=== PATIENT | female | born 1980 | race Caucasian/White ===

== ENCOUNTER 2020-02-02 10:50 | Emergency (ER) | payer OTHER, SELFPAY ==
[2020-02-02 11:20] VITALS: BP 118/74; PULSE 78; RESP 20; TEMP 36.5; O2SAT 97
--- NOTE | 2020-02-02 12:11 | ED.URI ---
HPI - URI/Sore Throat General Chief Complaint: Upper Respiratory Infection Stated Complaint: Cold/Flu Time Seen by Provider: 02/02/20 12:11 Source: patient, family and RN notes reviewed Mode of arrival: ambulatory Limitations: no limitations History of Present Illness HPI Narrative: 39-year-old female who presents to express care with complaints of bilateral earaches, nasal drainage, sinus congestion, and pressure and sore throat since Thursday. Patient states that she has felt feverish with some chills and sweats, reports that her nasal drainage is yellow tinged and she has sinus pressure to her face, reports that her cough is dry and denies any shortness of breath or any wheezing. Patient is former smoker for 25 years and vaped for 3 years with cessation April of 2019 prior to having cervical neck surgery. MD elicited complaint: fever (reports has felt feverish), cough, sore throat, rhinorrhea, nasal congestion and sinus pain Pertinent past history: other (history of past tobacco abuse and vaping) Onset (ago): day(s) (5 days) Consistency: constant Severity: moderate Pain scale (0-10): 7 Description of mucous: yellow Able to tolerate fluids by mouth: Yes Exacerbating factors: swallowing and exertion Relieving factors: nothing Context: sick contacts Associated symptoms: fever, chills, myalgias, rhinorrhea, nasal congestion, sore throat, cough and other (ear pain) Treatments prior to arrival: other (Benadryl) Related Data Home Medications Medication Instructions Recorded Confirmed cyclobenzaprine 10 mg PO HS 02/02/20 02/02/20 famotidine 20 mg PO BID 02/02/20 02/02/20 levothyroxine 25 mcg PO DAILY 02/02/20 02/02/20 metformin 850 mg PO BID 02/02/20 02/02/20 mirtazapine [Remeron] 45 mg PO HS 02/02/20 02/02/20 potassium chloride 20 meq PO DAILY 02/02/20 02/02/20 pravastatin 20 mg PO HS 02/02/20 02/02/20 pregabalin [Lyrica] 150 mg PO TID 02/02/20 02/02/20 propranolol 20 mg PO Q12H 02/02/20 02/02/20 topiramate 50 mg PO BID 02/02/20 02/02/20 trazodone 100 mg PO HS 02/02/20 02/02/20 venlafaxine 75 mg PO DAILY 02/02/20 02/02/20 venlafaxine 150 mg PO QAM 02/02/20 02/02/20 Allergies Allergy/AdvReac Type Severity Reaction Status Date / Time buspirone Allergy Unknown SWELLS Verified 03/06/18 11:24 hydroxyzine Allergy Unknown SWELLS Verified 03/06/18 11:24 Review of Systems Review of Systems: Narrative: CONSTITUTIONAL:reports has felt feverish, chills, or sweats. EYES: Denies visual changes, redness, or discharge. ENT Positive rhinorrhea, congestion,no sore throat, bilateral otalgia. CARDIOVASCULAR: Denies chest pain, palpitations, or edema. RESPIRATORY:Positive cough denies dyspnea. GASTROINTESTINAL: Denies abdominal pain, nausea, vomiting, or diarrhea. GENITOURINARY: Denies dysuria or hematuria. SKIN: Denies rash or itching. MUSCULOSKELETAL: Denies back pain, joint pain, or myalgia. NEUROLOGIC: Denies headache, numbness, or weakness. PSYCHIATRIC: Positive anxiety or depression. All systems reviewed & are unremarkable except as noted in HPI and below PMFSH Past Medical History Medical History (Updated 02/03/20 @ 17:32 by Angy Holley NP) Anxiety and depression Diabetes Fibromyalgia Migraines Surgical History Surgical History (Updated 02/02/20 @ 12:26 by Angy Holley NP) H/O cervical spine surgery Social History Social History (Updated 02/02/20 @ 12:26 by Angy Holley NP) Smoking status: Former smoker Living arrangements: with family Gender identity (if verbalized by the patient): Female Comments At time of signature, agree with nursing past medical, social history. There is no relevant family history pertinent to the presenting complaint Exam Narrative: Exam Narrative: GENERAL: Well-appearing, well-nourished, and in no acute distress. HEAD: Normocephalic, atraumatic. EYES: PERRLA and EOMI. ENT: Nares red yellow tinged rhinorrhea no epistaxis. Mucous membranes moist.TM's normal with good lig
== END 2020-02-02 13:15 | disposition home or self-care (01) ==
PROVIDERS: Emergency Provider Registered Nurse; PCP Internal Medicine
DX: J06.9 Acute upper respiratory infection, unspecified (principal); H60.501 Unspecified acute noninfective otitis externa, right ear; Z87.891 Personal history of nicotine dependence; F41.9 Anxiety disorder, unspecified; F32.9 Major depressive disorder, single episode, unspecified; E11.9 Type 2 diabetes mellitus without complications; M79.7 Fibromyalgia
CPT/HCPCS: 87081; 87880; 99213; G0463

== ENCOUNTER 2020-07-18 13:03 | Emergency (ER) | payer OTHER, SELFPAY ==
[2020-07-18 13:11] VITALS: BP 125/80; PULSE 98; RESP 18; TEMP 36.9; O2SAT 98
--- NOTE | 2020-07-18 13:22 | ED.URI ---
HPI - URI/Sore Throat General Chief Complaint: Upper Respiratory Infection Stated Complaint: sore throat/nose congestion/left ear pain Source: patient and RN notes reviewed Mode of arrival: ambulatory Limitations: no limitations History of Present Illness HPI Narrative: This is a 40 years old female presents to the office for an evaluation of left ear pain for one week. Associated with decrease hearing. Other symptoms include sore throat and sinus congestion. Denies fever and cough. She calls off work today and will need a note to return. Denies smoking. Denies sick contact. Related Data Home Medications Medication Instructions Recorded Confirmed pregabalin [Lyrica] 150 mg PO TID 02/02/20 07/18/20 aspirin 325 mg PO DAILY 07/18/20 07/18/20 atorvastatin 80 mg PO DAILY 07/18/20 07/18/20 empagliflozin [Jardiance] 10 mg PO DAILY 07/18/20 07/18/20 levothyroxine 125 mcg PO BID 07/18/20 07/18/20 metformin 500 mg PO BID 07/18/20 07/18/20 topiramate 50 mg PO BID 07/18/20 07/18/20 trazodone 100 mg PO HS 07/18/20 07/18/20 venlafaxine 75 mg TID 07/18/20 07/18/20 Allergies Allergy/AdvReac Type Severity Reaction Status Date / Time hydroxyzine Allergy Intermediate SWELLS Verified 07/18/20 13:31 buspirone AdvReac Intermediate Nausea and Verified 07/18/20 13:31 Vomiting Review of Systems Review of Systems: Narrative: CONSTITUTIONAL: Denies fever, chills ENT: Reports rhinorrhea, congestion, sore throat, left otalgia. CARDIOVASCULAR: Denies chest pain, palpitation RESPIRATORY: Denies dyspnea, wheezing, cough GASTROINTESTINAL: Denies abdominal pain, nausea, vomiting, diarrhea. SKIN: Denies rash MUSCULOSKELETAL: Denies acute back pain NEUROLOGIC: Denies lightheaded All other systems reviewed are negative, except as documented in HPI. [facility] Past Medical History Medical History (Updated 07/18/20 @ 13:46 by ANA LUISA Reyes) Anxiety and depression Diabetes Fibromyalgia Hypothyroid Migraines Surgical History Surgical History H/O cervical spine surgery Hx of cholecystectomy Social History Social History Smoking status: Former smoker Gender identity (if verbalized by the patient): Female Comments At time of signature, I agree with nursing past medical, surgical, social and family history. There is no relevant family history pertinent to the presenting complaint. Exam Narrative: Exam Narrative: GENERAL: This is a well-nourished, well-developed patient, in no apparent distress. EYES: Sclera clear/white. Vision is grossly intact. EARS: External ears normal, right auditory canal clear and without drainage. Left canal noted erythema,e dematous with tragal tenderness. Both TMs normal without perforation. Hearing grossly intact. NOSE: External nose normal with no obvious nasal discharge, nares slightly edematous and congestion. THROAT: Mucous membranes moist, posterior pharynx noted drainage with slight erythema. NECK: Neck supple, non-tender without lymphadenopathy, masses or thyromegaly. CARDIOVASCULAR: Regular rate and rhythm without murmurs, gallops, or rubs. RESPIRATORY: Clear to auscultation. Breath sounds equal bilaterally. No wheezes, rales, or rhonchi. GASTROINTESTINAL: Abdomen soft, non-tender, nondistended. Bowel sounds are active. No hepato-splenomegaly, or palpable masses. No guarding. SKIN: warm, intact with no suspicious lesions or rash, good texture and turgor. NEURO: awake, alert, and oriented to person, place and time. There were no obvious focal neurologic abnormalities. Steady gait [place] Coma Scale Eye Opening: Spontaneous 4 [place] Coma Scale Motor: Obeys Commands 6 [place] Coma Scale Verbal: Oriented 5 Course Vital Signs Vital signs: Vital Signs Temperature 98.4 F 07/18/20 13:11 Pulse Rate 98 07/18/20 13:11 Respiratory Rate 18 07/18/20 13:11 Blood Pressure 125/80
== END 2020-07-18 13:45 | disposition home or self-care (01) ==
PROVIDERS: Emergency Provider Nurse Practitioner; PCP Internal Medicine
DX: J06.9 Acute upper respiratory infection, unspecified (principal); H60.502 Unspecified acute noninfective otitis externa, left ear; Z20.828 Contact with and (suspected) exposure to other viral communicable diseases; Z87.891 Personal history of nicotine dependence; F41.9 Anxiety disorder, unspecified; F32.9 Major depressive disorder, single episode, unspecified; E11.9 Type 2 diabetes mellitus without complications; M79.7 Fibromyalgia; E03.9 Hypothyroidism, unspecified
CPT/HCPCS: 87081; 87880; 99213; G0463

== ENCOUNTER 2021-06-28 17:09 | Emergency (ER) | payer BC, MEDICAID, SELFPAY ==
[2021-06-28 17:15] VITALS: BP 126/90; PULSE 92; RESP 16; TEMP 36.8; O2SAT 100
--- NOTE | 2021-06-28 17:24 | ED.SKABFB ---
HPI - Skin/Abscess/Foreign Bdy General Chief complaint: Skin/Abscess/Foreign Body Stated complaint: cellulitis Time Seen by Provider: 06/28/21 17:19 History of Present Illness HPI narrative: Patient is a 41-year-old female who presents ER with concerns for infection and bug bite to the posterior aspect of her left lower extremity. Noticed it at 3:30 in the afternoon while at work. No fevers or chills or sweats. Has itching and redness. Patient has chronic edema to the leg. No additional concerns. Related Data Home Medications Medication Instructions Recorded Confirmed pregabalin [Lyrica] 150 mg PO TID 02/02/20 07/18/20 aspirin 325 mg PO DAILY 07/18/20 07/18/20 atorvastatin 80 mg PO DAILY 07/18/20 07/18/20 empagliflozin [Jardiance] 10 mg PO DAILY 07/18/20 07/18/20 levothyroxine 125 mcg PO BID 07/18/20 07/18/20 metformin 500 mg PO BID 07/18/20 07/18/20 topiramate 50 mg PO BID 07/18/20 07/18/20 trazodone 100 mg PO HS 07/18/20 07/18/20 venlafaxine 75 mg TID 07/18/20 07/18/20 Allergies Allergy/AdvReac Type Severity Reaction Status Date / Time hydroxyzine Allergy Intermediate SWELLS Verified 07/18/20 13:31 buspirone AdvReac Intermediate Nausea and Verified 07/18/20 13:31 Vomiting Review of Systems Constitutional: Constitutional: Denies chills and Denies fever(s) Integumentary/Breasts: Skin/Breast: Reports pruritus, Reports erythema and Denies skin ulcer Neurologic: Denies focal weakness and Denies numbness PMFSH Past Medical History Medical History (Updated 06/28/21 @ 17:26 by Delmar Loving MD) Anxiety and depression Diabetes Fibromyalgia Hypothyroid Migraines Surgical History Surgical History H/O cervical spine surgery Hx of cholecystectomy Social History Social History Smoking status: Former smoker Gender identity (if verbalized by the patient): Female Exam Narrative: GENERAL: Well-appearing, well-nourished, and in no acute distress. HEAD: Normocephalic, atraumatic. EXTREMITIES: Normal range of motion. 2+ edema. SKIN: Warm, dry, no rash. Early cellulitis just above the patient's sock line. Patient has applied ointment to it. No abscess or obvious bite jarek. NEURO: No focal deficits. Alert and oriented x3. PSYCH: Normal mood and affect. Course Course Emergency Course: Will place on Keflex to treat possible early infection. Likely related to irritation of the skin from rubbing around patient's sock and jeans. Vital Signs Vital signs: Vital Signs Temperature 98.2 F 06/28/21 17:15 Pulse Rate 92 06/28/21 17:15 Respiratory Rate 16 06/28/21 17:15 Blood Pressure 126/90 06/28/21 17:15 Pulse Oximetry 100 06/28/21 17:15 Temperature 98.2 F 06/28/21 17:15 Pulse Rate 92 06/28/21 17:15 Respiratory Rate 16 06/28/21 17:15 Blood Pressure 126/90 06/28/21 17:15 Pulse Oximetry 100 06/28/21 17:15 Discharge Plan Discharge Clinical Impression: Cellulitis Patient Disposition: Home, Self-Care Condition: Stable Instructions: Cellulitis (ED) Additional Instructions: Return the ER if you have fever over 100.4 ?F, you cannot keep down food or water, the redness is extending up your leg, or you have pus draining from the wound. Prescriptions: New cephalexin 500 mg capsule 500 mg PO Q8H Qty: 21 RF: 0 No Action atorvastatin 80 mg Tablet 80 mg PO DAILY RF: 0 aspirin 325 mg Tablet 325 mg PO DAILY RF: 0 levothyroxine 125 mcg Tablet 125 mcg PO BID RF: 0 metformin 500 mg Tablet Extended Release 24 Hr 500 mg PO BID RF: 0 Ciprodex 0.3-0.1 % drops,suspension 4 drop LEFTEAR Q12H 7 Days Qty: 7.5 RF: 0 Jardiance 10 mg Tablet 10 mg PO DAILY RF: 0 topiramate 50 mg Tablet 50 mg PO BID RF: 0 trazodone 100 mg Tablet 100 mg PO HS RF: 0 venlafaxine 75 mg Tablet 75 mg TID RF: 0 pregaba
== END 2021-06-28 17:36 | disposition home or self-care (01) ==
LOC: ANHED 17:50
PROVIDERS: Emergency Provider Emergency Medicine
DX: L03.116 Cellulitis of left lower limb (principal); Z79.82 Long term (current) use of aspirin; Z79.84 Long term (current) use of oral hypoglycemic drugs; Z79.899 Other long term (current) drug therapy; E11.9 Type 2 diabetes mellitus without complications; M79.7 Fibromyalgia; E03.9 Hypothyroidism, unspecified; F41.9 Anxiety disorder, unspecified; F32.9 Major depressive disorder, single episode, unspecified; W57.XXXA Bitten or stung by nonvenomous insect and other nonvenomous arthropods, initial encounter
CPT/HCPCS: 99283

== ENCOUNTER 2022-01-07 12:36 | Emergency (ER) | payer BC, MEDICAID, SELFPAY ==
--- NOTE | ~2022-01-07 | XR_ITS ---
EXAMINATION: XR chest 2V EXAM DATE: 01/07/2022 13:16 INDICATION: Chest pain started today, hx of [place] 8 yrs ago. TECHNIQUE: Frontal and lateral projections of the chest obtained and reviewed. There is no prior marco antonio dy for comparison. FINDINGS: Cervical fusion hardware. The lungs are clear. There are no pleural effusions. The cardi omediastinal silhouette is within normal limits. There is no pneumothorax suspected. The bones and soft tissues are unremarkable. IMPRESSION: No acute cardiopulmonary findings. Reviewed, dictated and finalized at location [facility]
[2022-01-07 12:47] VITALS: BP 128/77; PULSE 75; RESP 20; TEMP 36.8; O2SAT 98
--- NOTE | 2022-01-07 12:50 | ECG_ITS ---
Measurements Intervals [place] Rate: 80 P: 55 [place]: 161 QRS: 1 QRSD: 98 T: 19 QT: 384 QTc: 444 Interpretive Statements SINUS RHYTHM BASELINE ARTIFACT- I, II, AVR, AVL, AVF, V1 NORMAL ECG Electronically Signed On 01-07-2022 12:55:13 [employer] by Zurdo Ortega D.O.
[2022-01-07 13:09] LABS: Basophils Percent Auto 0.5 % (0.2-1.2); Eosinophils Absolute Auto 0.2 K/mm3 (0-0.3); Eosinophils Percent Auto 3.3 % (0-4.4); Hematocrit 35.8 % (37.0-47.0); Hemoglobin 11.9 g/dL (12.0-15.0); Immature Granulocyte Absolute 0.04 K/mm3 (0.00-0.031); Immature Granulocyte Percent A 0.6 % (0-0.5); Lymphocytes Absolute Auto 1.58 K/mm3 (0.9-3.2); Lymphocytes Percent Auto 24.9 % (18.3-44.2); Mean Corpuscular HGB Conc 33.2 g/dl (32-36); Mean Corpuscular Volume 87.3 fl (80-100); Mean Platelet Volume 8.4 fl (7.4-10.4); Monocytes Absolute Auto 0.4 K/mm3 (0.1-0.6); Monocytes Percent Auto 6.3 % (2.6-8.5); Neutrophils Absolute Auto 4.1 K/mm3 (1.3-6.7); Neutrophils Percent Auto 64.4 % (45.5-73.1); Platelet Count Result 253 k/mm3 (150-375); White Blood Count 6.3 K/mm3 (4.5-10.0)
[2022-01-07 13:21] LABS: Alanine Aminotransferase 19 U/L (4-35); Albumin Level 4.4 g/dL (3.5-5.1); Alkaline Phosphatase 54 U/L (38-126); Anion Gap 9 mmol/L (8-16); Aspartate Amino Transferase 25 U/L (14-36); Bilirubin,Total 0.6 mg/dL (0.2-1.3); Blood Urea Nitrogen 11 mg/dL (7-17); Calcium 8.8 mg/dL (8.4-10.2); Carbon Dioxide 26 mmol/L (22-30); Chloride 102 mmol/L (98-107); Estimated CRCL calculation 164 ml/min; Estimated Glomerular Filt Rate > 60; Glucose 266 mg/dL (65-110); INR 1.1; Lipase 108 U/L (23-300); Potassium 3.6 mmol/L (3.4-5.0); Prothrombin Time 13.9 Seconds (11.1-14.7); Sodium 137 mmol/L (137-145)
[2022-01-07 13:22] LABS: Partial Thromboplastin Time 24.8 SECONDS (22.3-36.8)
[2022-01-07 13:32] LABS: Troponin I < 0.012 ng/mL (0.000-0.034)
[2022-01-07 13:47] VITALS: BP 133/93; PULSE 79; RESP 18; O2SAT 97
--- NOTE | 2022-01-07 14:06 | ED.CHESTPAIN ---
HPI - Chest Pain General Chief Complaint: Chest Pain Stated Complaint: Chest pain Time Seen by Provider: 01/07/22 13:48 Source: RN notes reviewed History of Present Illness HPI narrative: Patient presents emergency department from work via EMS for chest pain. Patient states that this morning she had 2 episodes of midsternal chest pain radiating to left shoulder patient's pain got better when she sat down and then again worsened when she got up she states that the pain is now resolved at this time the pain was described as a pressure states is associated with some nausea mild shortness of breath. Patient states she has a history of a NE approximately 8 years ago no stents were placed at that time she states she does have a history of diabetes hypertension and high cholesterol and states that she has been having feelings of her heart racing and she is post be seen cardiology to be set up with an event monitor in several days at [facility] she denies any other cardiac history Related Data Home Medications Medication Instructions Recorded Confirmed pregabalin [Lyrica] 150 mg PO TID 02/02/20 07/18/20 aspirin 325 mg PO DAILY 07/18/20 07/18/20 atorvastatin 80 mg PO DAILY 07/18/20 07/18/20 empagliflozin [Jardiance] 10 mg PO DAILY 07/18/20 07/18/20 levothyroxine 125 mcg PO BID 07/18/20 07/18/20 metformin 500 mg PO BID 07/18/20 07/18/20 topiramate 50 mg PO BID 07/18/20 07/18/20 trazodone 100 mg PO HS 07/18/20 07/18/20 venlafaxine 75 mg TID 07/18/20 07/18/20 Allergies Allergy/AdvReac Type Severity Reaction Status Date / Time hydroxyzine Allergy Intermediate SWELLS Verified 07/18/20 13:31 buspirone AdvReac Intermediate Nausea and Verified 07/18/20 13:31 Vomiting Review of Systems Review of Systems: Gen.: Denies fevers or chills ENT: Denies congestion Respiratory: Reports shortness of breath chest pain CV: HPI GI: Denies abdominal pain emesis or diarrhea. Reports nausea with pain denies burning, urgency, frequency or hematuria Musculoskeletal: Denies back pain or muscle pain Neuro: Denies numbness, tingling, weakness or focal weakness Skin: Denies rash Except as documented, all other systems reviewed and negative [facility] Past Medical History Medical History Anxiety and depression Diabetes Fibromyalgia Hypothyroid Migraines Surgical History Surgical History H/O cervical spine surgery Hx of cholecystectomy Social History Social History Smoking status: Former smoker Gender identity (if verbalized by the patient): Female Exam Narrative: APPEARANCE: No acute distress, nontoxic, resting in bed EYES: EOMI HEENT: Normocephalic, atraumatic, OMM RESPIRATORY: No respiratory distress Clear to auscultation bilaterally with no rhonchi wheezing or rales. CARDIOVASCULAR: Regular rate and rhythm without murmurs rubs or gallops. ABDOMINAL: Soft, nontender, nondistended, no rebound or guarding MUSCULOSKELETAl: Moves all extremities. No clubbing, cyanosis or edema. NEURO: Awake and alert. Following commands, speech normal, no focal deficits SKIN:: Warm, dry. No rashes lesions or abrasions PSYCHIATRIC: Normal affect/mood, Course Course Emergency Course: Discussed with AGNES Mauricio for cardiology presentation work-up this time recommends admission to the hospital service with cardiology consult Discussed with JAMILAH Perez for Dr. Tilley presentation work-up agrees with admission Discussed with patient and family results of workup and diagnosis. Discussed need for admission. Patient and family understand and agree to current treatment plan Vital Signs Vital signs: Vital Signs Temperature 98.2 F 01/07/22 12:47 Pulse Rate 75 01/07/22 12:47 Respiratory Rate 20 01/07/22 12:47 Blood Pressure 128/77 01/07/22 12:47 Pulse Oximetry 98 01/07/22 12:47
[2022-01-07] MEDS: ASPIRIN 81 MG CHEWABLE TABLET 324 MG PO (14:17)
[2022-01-07 15:55] LABS: Troponin I < 0.012 ng/mL (0.000-0.034)
== END 2022-01-07 16:14 | disposition left against medical advice (07) ==
LOC: ANHED 14:59 → ANHIMU 15:23
PROVIDERS: Emergency Provider Emergency Medicine; Visit Provider Hospitalist
DX: R07.2 Precordial pain (principal); E11.9 Type 2 diabetes mellitus without complications; M79.7 Fibromyalgia; E03.9 Hypothyroidism, unspecified; F41.9 Anxiety disorder, unspecified; F32.A Depression, unspecified; Z79.84 Long term (current) use of oral hypoglycemic drugs; Z79.82 Long term (current) use of aspirin; Z87.891 Personal history of nicotine dependence
CPT/HCPCS: 36415; 71046; 80053; 83690; 84484; 85025; 85610; 85730; 93005; 99284; A9270

== ENCOUNTER 2022-08-18 09:51 | Outpatient (CLI) | payer BC, MEDICAID, SELFPAY | END 2022-08-18 09:52 | disposition home or self-care (01) | LOC: ANHAUDASC 09:52 | DX: H90.3 Sensorineural hearing loss, bilateral (principal) | CPT/HCPCS: 92557; 92567 ==